=== PATIENT | female | born 1985 | race American Indian/Alaskan Native ===

== ENCOUNTER → 2025-03-31 | Outpatient (CLI) | payer BC, MEDICAID, SELFPAY ==
--- NOTE | 2025-03-31 15:58 | XR_ITS ---
Examination: MRI lumbar spine without contrast Date and time of exam: March 31, 2025 1612 hours INDICATIONS: Low back pain radiating down the right leg 5 years Technique: Multiple MRI axial and sagittal sections lumbar spine. Sagittal T2-weighted images, TR 3500, TE 118 T1 weighted transverse sections, TR 688 T8.5, T2-weighted sagittal sections T1 weighted sagittal sections TR 621, TE 30 T2 axial sections, TR 4, 190, TE 84. Findings: Adequate alignment lumbar vertebral bodies Moderate disc narrowing L4-L5 Disc desiccation lower 3 lumbar levels L5-S1 8 mm central right paracentral subarticular disc bulge displacing the right S1 nerve root and producing mild right L5 ganglionic compression L4-L5 7 mm central lumbar disc bulge indenting the ventral margin thecal sac L3-L4 10 mm extruded central left paracentral disc severely indenting the thecal sac L2-L3 no disc protrusion L1-2 no disc protrusion IMPRESSION: L5-S1 8 mm central right paracentral subarticular disc bulge displacing the right S1 nerve root and producing mild right L5 ganglion compression L4-L5 7 mm central lumbar disc bulges indenting the ventral margin thecal sac. L3-L4 10 mm extruded central left paracentral disc severely indenting the thecal sac
== END | disposition home or self-care (01) ==
LOC: SMRI 04-06 08:11
PROVIDERS: PCP Nurse Practitioner Family; Referring Provider Physician Assistant; Visit Provider Physician Assistant
DX: M51.370 Other intervertebral disc degeneration, lumbosacral region with discogenic back pain only (principal); M51.360 Other intervertebral disc degeneration, lumbar region with discogenic back pain only; G95.20 Unspecified cord compression
CPT/HCPCS: 72148